=== PATIENT | female | born 1955 | race Caucasian/White ===

== ENCOUNTER 2021-04-24 09:24 | Day surgery (SDC) | payer MEDICARE, BC ==
[~2021-04-24 09:24] MED LIST: Lactated Ringers 1,000 ML IV SCH
[2021-04-24] MEDS ORDERED: Propofol 200 MG/20 ML SDV ONE (10:59)
[2021-04-24] MEDS ORDERED: fentaNYL 100 MCG/2 ML SDV ONE (11:00)
--- NOTE | 2021-04-25 08:17 | OR ---
PREOPERATIVE DIAGNOSIS: Screening colonoscopy. This is either the first colonoscopy or maybe she had one back in 2003, but is unsure of this. There is no family history of colon cancer. POSTOPERATIVE DIAGNOSES: 1. Normal colon and normal-appearing terminal ileum. 2. External hemorrhoidal skin tags without any acute inflammation. PROCEDURE: Colonoscopy. SURGEON: Yung Jay M.D. ANESTHESIA: Monitored anesthesia care. BOWEL PREP: Good. DESCRIPTION OF PROCEDURE: Kelli is a 65-year-old female who was brought to the endoscopy suite after discussing risks and benefits of the procedure. Informed consent was obtained for conscious sedation and colonoscopy with or without biopsy and/or polypectomy. We also discussed possibility of missed lesions. Pre-procedure exam was unremarkable. IV, oxygen, and monitors were placed. The patient was placed in the left lateral decubitus position. Sedation was administered and a digital rectal exam was performed and remarkable for some external hemorrhoidal skin tags without any acute inflammation. Colonoscope was passed into the rectum and slowly advanced all the way to the cecum. Cecum was viewed and photographed. Ileocecal valve was intubated and terminal ileum was normal in appearance. The colonoscope was slowly withdrawn and the mucosa was closed observed in a direct circumferential manner. The ascending colon was unremarkable. The transverse colon was unremarkable. The descending colon was unremarkable. The sigmoid colon was unremarkable. Retroflexion was performed. Rectal mucosa was unremarkable. Scope was removed. The patient tolerated the procedure well. The patient was monitored until that baseline status. Discharge instructions were reviewed and the patient was discharged in good condition. COMPLICATIONS: None. TOTAL TIME: 14 minutes. ESTIMATED BLOOD LOSS: None. RECOMMENDATIONS/FOLLOW-UP: Barring any change in family history or personal symptoms, the patient is good for the next 10 years on colon cancer screening. I would like to kindly thank Dr. Dinero for this referral. DMB: 04/24/2021 14:00:19 MODL: 04/24/2021 15:21:00 /[id number]
== END 2021-04-24 13:55 | disposition home or self-care (01) ==
LOC: VM.SDS 09:24
PROVIDERS: ATTEND Family Medicine
DX: Z12.11 Encounter for screening for malignant neoplasm of colon (principal); K64.4 Residual hemorrhoidal skin tags; I10 Essential (primary) hypertension; E66.9 Obesity, unspecified; E55.9 Vitamin D deficiency, unspecified; Z98.890 Other specified postprocedural states; H81.13 Benign paroxysmal vertigo, bilateral; R73.9 Hyperglycemia, unspecified; R91.8 Other nonspecific abnormal finding of lung field; N81.11 Cystocele, midline; Z79.899 Other long term (current) drug therapy; E78.00 Pure hypercholesterolemia, unspecified; Z79.82 Long term (current) use of aspirin; Z88.8 Allergy status to other drugs, medicaments and biological substances; Z68.32 Body mass index [BMI] 32.0-32.9, adult
CPT/HCPCS: 00812; G0121; J2704; J3010; J7120